=== PATIENT | female | born 1935 | race Caucasian/White ===

== ENCOUNTER 2019-03-05 17:10 | Observation (INO) ==
--- NOTE | 2019-03-05 17:45 | ERNOTE ---
Neuro HPI ER Record Date of Service: 03/05/19 Presenting Symptoms: weakness, difficulty walking Time Seen by Provider: 03/05/19 17:31 Source: family, RN notes reviewed, past records Exam Limitations: dementia, other - expressive aphasia Immunizations: IMMUNIZATION HX Immunizations Up to Date Yes History of Influenza Vaccine Yes Hx Pneumococcal Vaccination Yes Allergies/Adverse Reactions: Allergies Allergy/AdvReac Type Severity Reaction Status Date / Time codeine AdvReac Mild Nausea Verified 03/05/19 17:19 silicone AdvReac Mild SURGICAL Verified 03/05/19 17:19 TAPE CAUSES RASH Home Medications: HOME MEDICATIONS Docusate Sodium [Colace] 100 mg PO DAILY PRN 09/22/15 [Last Taken Unknown] diphenhydrAMINE HCL [Benadryl] 25 mg PO Q6H PRN 09/22/15 [Last Taken Unknown] Aspirin [Aspirin Enteric Coated] 81 mg PO DAILY 09/26/15 [Last Taken Unknown] omeprazole 20 mg tablet,delayed release 20 mg PO DAILY #90 tab 02/09/18 [Last Taken Unknown] memantine 10 mg tablet 10 mg PO BID 12/30/18 [Last Taken Unknown] acetaminophen 500 mg tablet 500 mg PO Q6H PRN #120 tab 01/06/19 [Last Taken Unknown] levothyroxine 112 mcg tablet 112 mcg PO DAILY #90 tab 02/09/19 [Last Taken Unknown] losartan 100 mg-hydrochlorothiazide 12.5 mg tablet 1 tab PO DAILY #90 tab 02/09/19 [Last Taken Unknown] acetaminophen 325 mg capsule 325 mg PO Q6H PRN #30 cap 02/10/19 [Last Taken Unknown] ciprofloxacin 500 mg tablet 500 mg PO BID #10 tab 02/11/19 [Last Taken Unknown] sertraline 25 mg tablet 25 mg PO DAILY #90 tab 02/25/19 [Last Taken Unknown] - History of Present Illness Narrative: Elizabeth is a 84 year old female brought to the ED by her . She resides in the dementia unit at the [facility] and has expressive aphasia. She has had a general decline in overall functioning in the past couple of weeks and has been noted to be leaning to the right. She saw her neurologist today. A stat head CT was ordered. This was not able to be done without prior authorization so she was brought to the ER from scheduling. She was recently treated for a UTI with Cipro. - Character of Deficits Additional Deficits: Present: decrease ability to stand, decrease ability to walk Prior Treament: Reports: recently seen Review of Systems - Narrative Narrative: Unable to complete d/t patient condition Medical History (Updated 01/26/18 @ 16:[address] [facility]) Anxiety Onset Date: ~12/29/12 Aphasia Dementia Diagnosed by Dr. Mejia Fibromyalgia Onset Date: ~07/22/11 GERD (gastroesophageal reflux disease) Onset Date: ~07/22/11 Hyperlipidemia Onset Date: ~07/22/11 Hypertension Onset Date: ~07/22/11 Hypothyroidism Onset Date: ~07/22/11 IBS (irritable bowel syndrome) Osteoarthritis Onset Date: ~07/22/11 Osteoporosis Sciatica Scoliosis Onset Date: ~1949 back brace Allergic rhinitis Onset Date: ~07/22/11 Humerus fracture Onset Date: ~09/22/15 closed, left distal Joint pain Onset Date: ~07/22/11 Low back pain Plantar fasciitis Surgical History: Surgical History (Updated 01/26/18 @ 16:[address] [facility]) Cataract Onset Date: ~09/2009 bilateral H/O breast biopsy Onset Date: ~1994 right breast,negative. H/O removal of cyst Onset Date: ~1958 bartholin cyst. H/O tubal ligation Onset Date: ~1974 H/O: hysterectomy Onset Date: ~1985 History of kyphoplasty L2 spine History of open reduction and internal fixation (ORIF) procedure Onset Date: ~09/27/15 left distal humerus History of rectal surgery Onset Date: ~2001 anterior/posterior rectal field lift by Dr. Melody burnett. H/O colonoscopy Onset Date: ~09/2009 Family History: Family History (Updated 01/26/18 @ 16:[address] [facility]) Daughter Alive and well Mother , age 89 Cancer rectal CVA (cerebral vascular accident) CHF (congestive heart failure) Heart disease Hypertension Osteoporosis Father , age 82 Diabetes CVA (cerebral vascular accident) Son Alive and well Social History: (Last Reviewed 03/05/19 @ 19:14 by Alcira Sena NP) Social History: mcc: No Marital status: lives independently: No current occupational status: retired Highest education level completed: Master's degree Service: No Tobacco: Smoking Status: Never smoker Alcohol: alcohol intake: current alcohol intake frequency: a few times a month Substance Use: substance use type: does not use Dietary Habits: caffeine: Yes caffeine comment: current every day Type: coffee Physical Exam - Physical Exam General Appearance: Present: wd/wn, alert, no apparent distress Head Exam: Present: normal inspection, no evidence of injury Eye Exam: Normal inspection: bilateral, PERRL: bilateral Ears, Nose, Throat: Present: normal ENT inspection, normal pharynx Neck: Present: normal inspection, supple Respiratory: Present: no respiratory distress, normal breath sounds, no accessory muscle use, lungs clear Cardiovascular/Chest: Present: regular rate, rhythm, no murmur Gastrointestinal/Abdominal: Present: normal bowel sounds, nondistended, soft Extremity Exam: Present: normal inspection, normal range of motion Neurological Exam: Present: alert, other - Smiles when spoken to, sometimes answers a question with a one word answer, obeys some commands. Absent: oriented, normal mood/affect, no motor/sensory deficits Skin Exam: Present: normal color, warm/dry Progress - Results and Orders Patient's Lab Results:: I have reviewed the patient's lab results. - Vital Signs Patient's Vital Signs:: I have reviewed the patient's vital signs. Vital Signs: Vital Signs 03/05/19 17:11 Temperature 36.6 C Pulse Rate 76 Respiratory Rate 16 Blood Pressure 143/75 O2 Sat by Pulse Oximetry 97 - EKG EKG #1 EKG: NSR, other - prolonged QT interval EKG read: Reviewed by me - CT/Ultrasound CT/Ultrasound Narrative: Head CT shows no acute intracranial process - Progress/Reassessment Chief Complaint: Altered Mental Status Progress:: Unchanged Plan - Plan Plan: Head CT is without acute findings, K+ is 2.1 - a K-rider is currently infusing. UA shows that the patient has a UTI. She just had a UTI that was treated with Cipro (culture was sensitive) approx 3 weeks ago. Will start Bactrim. Dr. Shaw was contacted. The patient will be admitted to observation for further potassium replacement and monitoring. Departure Clinical Impression: Hypokalemia Altered mental status Qualifiers: Altered mental status type: unspecified Qualified Code(s): R41.82 - Altered mental status, unspecified UTI (urinary tract infection) Qualifiers: Urinary tract infection type: acute cystitis Hematuria presence: without hematuria Qualified Code(s): N30.00 - Acute cystitis without hematuria - Departure Disposition: Still a patient Condition: Stable Referrals: Heladio Pena DO [Primary Care Provider] -
[2019-03-05 17:59] LABS: Hematocrit 37.2 % (37.0-47.0); Hemoglobin 12.1 gm/dL (12.5-16.0); Mean Cell Volume 96.9 fl (78-100); Mean Corpuscular Hemoglobin 31.5 pg (27-31); Mean Corpuscular Hgb Conc 32.5 g/dl (32-36); Mean Platelet Volume 9.1 fl (8-12.5); Neutrophil # 4.8 K/mm3 (1.3-6.0); Neutrophil % 66.3 % (42-75.0); Platelet Count 255 K/mm3 (150-450); Red Blood Count 3.84 M/mm3 (4.2-5.4); Red Cell Distribution Width 12.5 % (11.5-14.0); White Blood Count 7.3 K/mm3 (4.0-10.5)
[2019-03-05 18:05] LABS: Urine Bilirubin Negative (NEGATIVE); Urine Blood Negative /ul (NEGATIVE); Urine Ketone 5 mg/dL (NEGATIVE); Urine Nitrite Negative (NEGATIVE); Urine Protein 15 mg/dL (NEGATIVE); Urine Urobilinogen Normal (NORMAL); Urine pH 7.5 pH (5.0-7.0)
[2019-03-05 18:12] LABS: Anion Gap 10.9 mmol/L (6.8-13.8); BUN/Creatinine Ratio 12.2 (9.0-21.6); Bilirubin, Total 0.6 mg/dL (0.0-1.1); Ca. Corrected For Albumin 9.2 mg/dL (8.4-10.2); Calcium * 8.7 mg/dL (7.9-10.9); Carbon Dioxide 33.2 mmol/L (24-32.6); Total Protein 6.5 gm/dL (6.2-8.2)
[2019-03-05 18:15] LABS: Potassium 2.1 mmol/L (3.4-4.6)
[2019-03-05 18:19] LABS: Urine Appearance Slightly Cloudy (CLEAR); Urine Color Yellow
[2019-03-05 18:20] LABS: Urine Amorphous Sediment Few - 1+ (NONE-FEW); Urine Bacteria 4+; Urine Mucus Moderate - 2+; Urine RBC None Seen /hpf (0-5); Urine WBC 0-5 /hpf (0-5)
[2019-03-05] MEDS ORDERED: POTASSIUM CHLORIDE IN WATER 100 ML IV ONE (18:25)
[2019-03-05] MEDS: NORMAL SALINE 1,000 ML IV PRN ×2 (19:09→20:36)
--- NOTE | 2019-03-05 21:01 | HP ---
Chief Complaint - Chief Complaint Date of Service: 03/05/19 Time of Service: 21:00 Chief Complaint: Encephalopathy and Hypokalemia History of Present Illness: 84-year-old female with multiple comorbidities including history of stroke with residual deficits, dementia and expressive aphasia brought into the ER for concerns of weakness, altered mental status progressively getting worse over the last 2 weeks. Patient is a resident of [facility]. Initially seen by Dr. Pena in clinic 2 weeks ago patient was evaluated and discharged back to snf in [place]. Patient returned was evaluated by Dr. August and stat CT was ordered and concern for a possible stroke. Symptoms observed upon arrival were expressive aphasia and leaning of the body towards the right side passively getting worse. at the bedside states that his symptoms progressively began to decline shortly after her birthday towards the end of January. Evaluation completed upon arrival in the ER with CT of the head ruled out an acute bleed. Labs were significant for hypokalemia of 2.1, and UA obtained consistent with an infection. Her symptoms of altered mental status are consistent with an infection and low potassium. Patient was admitted to [facility] for repletion of potassium and treatment of a urinary tract infection. Medical History (Updated 03/05/19 @ 21:01 by Daksha Shaw MD) Anxiety Onset Date: ~12/29/12 Aphasia Dementia Diagnosed by Dr. Mejia Fibromyalgia Onset Date: ~07/22/11 GERD (gastroesophageal reflux disease) Onset Date: ~07/22/11 Hyperlipidemia Onset Date: ~07/22/11 Hypertension Onset Date: ~07/22/11 Hypothyroidism Onset Date: ~07/22/11 IBS (irritable bowel syndrome) Osteoarthritis Onset Date: ~07/22/11 Osteoporosis Sciatica Scoliosis Onset Date: ~1949 back brace Allergic rhinitis Onset Date: ~07/22/11 Humerus fracture Onset Date: ~09/22/15 closed, left distal Joint pain Onset Date: ~07/22/11 Low back pain Plantar fasciitis Surgical History: Surgical History (Updated 03/05/19 @ 21:01 by Daksha Shaw MD) Cataract Onset Date: ~09/2009 bilateral H/O breast biopsy Onset Date: ~1994 right breast,negative. H/O removal of cyst Onset Date: ~1958 bartholin cyst. H/O tubal ligation Onset Date: ~1974 H/O: hysterectomy Onset Date: ~1985 History of kyphoplasty L2 spine History of open reduction and internal fixation (ORIF) procedure Onset Date: ~09/27/15 left distal humerus History of rectal surgery Onset Date: ~2001 anterior/posterior rectal field lift by Dr. Melody burnett. H/O colonoscopy Onset Date: ~09/2009 Family History: Family History (Updated 01/26/18 @ 16:28 by Bacilio Rojo CMA) Daughter Alive and well Mother , age 89 Cancer rectal CVA (cerebral vascular accident) CHF (congestive heart failure) Heart disease Hypertension Osteoporosis Father , age 82 Diabetes CVA (cerebral vascular accident) Son Alive and well Social History: (Last Reviewed 03/05/19 @ 21:38 by Ofelia Paiz RN) Social History: snf: No Marital status: lives independently: No current occupational status: retired Highest education level completed: Master's degree Service: No Tobacco: Smoking Status: Never smoker Alcohol: alcohol intake: current alcohol intake frequency: a few times a month Substance Use: substance use type: does not use Dietary Habits: caffeine: Yes caffeine comment: current every day Type: coffee Review Of Systems (GEN) - Review of Systems Generalized/Overall Review: Present: Weakness, Malaise, Fatigue Respiratory: Absent: Shortness of Breath Cardiac: Absent: Chest Pain Abdominal: Absent: Nausea, Vomiting Musculoskeletal: Absent: No Symptoms Reported Neurological: Present: Weakness, Pre-existing Deficit Skin: Present: Dryness Immunizations: IMMUNIZATION HX Immunizations Up to Date Yes History of Influenza Vaccine Yes Hx Pneumococcal Vaccination Yes Allergies/Adverse Reactions: Allergies Allergy/AdvReac Type Severity Reaction Status Date / Time codeine AdvReac Mild Nausea Verified 03/05/19 17:19 silicone AdvReac Mild SURGICAL Verified 03/05/19 17:19 TAPE CAUSES RASH Home Medications: HOME MEDICATIONS Aspirin [Aspirin Enteric Coated] 81 mg PO DAILY 09/26/15 [Last Taken Unknown] memantine 10 mg tablet 10 mg PO BID 12/30/18 [Last Taken Unknown] levothyroxine 112 mcg tablet 112 mcg PO DAILY #90 tab 02/09/19 [Last Taken Unknown] losartan 100 mg-hydrochlorothiazide 12.5 mg tablet 1 tab PO DAILY #90 tab 02/09/19 [Last Taken Unknown] sertraline 25 mg tablet 25 mg PO DAILY #90 tab 02/25/19 [Last Taken Unknown] Exam - Exam Vital Signs: Vital Signs - Last Taken Temp 36.6 C 03/05/19 17:11 Pulse 80 03/05/19 20:15 Resp 20 03/05/19 20:15 BP 146/66 03/05/19 20:15 Pulse Ox 99 03/05/19 20:15 Constitutional: Present: Alert, No distress, Elderly, Thin and frail. Absent: Oriented x3 Respiratory: Present: lungs clear, normal breath sounds, no respiratory distress Cardiovascular/Chest: Present: normal peripheral pulses, regular rate, rhythm, no edema Abdomen: Present: Normal bowel sounds, soft, nontender Extremity: Absent: normal range of motion Skin Exam: Present: normal color, warm/dry Neurologic: Present: motor weakness, sensory deficit, disoriented x 3 Appearance: Present: impaired recent memory, impaired remote memory Eye contact: Present: decreased rate of speech, other - communicates minimally Diagnostic Studies: Abnormal Lab Results 03/05/19 03/05/19 03/05/19 Range/Units 17:55 17:55 18:00 RBC 3.84 L (4.2-5.4) M/mm3 Hgb 12.1 L (12.5-16.0) gm/dL MCH 31.5 H (27-31) pg Sodium 145 H (132-142) mmol/L Plasma Sodium 145 H (130-142) mmol/L Potassium 2.1 L* D (3.4-4.6) mmol/L Carbon Dioxide 33.2 H (24-32.6) mmol/L Est GFR (Non-Af Amer) 58 L (60-130) mL/min Random Glucose 112 H (70-110) mg/dL Albumin 3.0 L (3.4-5.0) gm/dl Urine Protein 15 H (NEGATIVE) mg/dL Ur Leukocyte Esterase 25 H (NEGATIVE) /ul Urine Bacteria 4+ H (NONE) Urine Mucus Moderate - 2+ H (NONE) Laboratory Results WBC 7.3 K/mm3 (4.0-10.5) 03/05/19 17:55 RBC 3.84 M/mm3 (4.2-5.4) L 03/05/19 17:55 Hgb 12.1 gm/dL (12.5-16.0) L 03/05/19 17:55 Hct 37.2 % (37.0-47.0) 03/05/19 17:55 MCV 96.9 fl (78-100) 03/05/19 17:55 MCH 31.5 pg (27-31) H 03/05/19 17:55 MCHC 32.5 g/dl (32-36) 03/05/19 17:55 RDW 12.5 % (11.5-14.0) 03/05/19 17:55 Plt Count 255 K/mm3 (150-450) 03/05/19 17:55 MPV 9.1 fl (8-12.5) 03/05/19 17:55 Immature Gran % (Auto) 0.30 % (0.001-0.429) 03/05/19 17:55 Immature Gran # (Auto) 0.02 K/mm3 (0.000-0.0310) 03/05/19 17:55 66.3 % (42-75.0) 03/05/19 17:55 23.6 % (20-51) 03/05/19 17:55 8.7 % (0.0-9) 03/05/19 17:55 0.7 % (0.0-3.0) 03/05/19 17:55 0.4 % (0.0-1.0) 03/05/19 17:55 Nucleated RBC % 0.0 k/mm3 (0-1) 03/05/19 17:55 4.8 K/mm3 (1.3-6.0) 03/05/19 17:55 1.71 k/mm3 (1.5-3.5) 03/05/19 17:55 0.6 k/mm3 (0.0-1.0) 03/05/19 17:55 0.1 k/mm3 (0.0-0.7) 03/05/19 17:55 Absolute Basophils 0.0 k/mm3 (0.0-0.1) 03/05/19 17:55 Sodium 145 mmol/L (132-142) H 03/05/19 17:55 145 mmol/L (130-142) H 03/05/19 17:55 Potassium 2.1 mmol/L (3.4-4.6) L* D 09/06/19 17:55 Chloride 103 mmol/L (97-106) 03/05/19 17:55 Carbon Dioxide 33.2 mmol/L (24-32.6) H 03/05/19 17:55 10.9 mmol/L (6.8-13.8) 03/05/19 17:55 BUN 12 mg/dL (3-23) 03/05/19 17:55 0.98 mg/dL (0.4-1.4) 03/05/19 17:55 Est GFR (Non-Af Amer) 58 mL/min (60-130) L 03/05/19 17:55 12.2 (9.0-21.6) 03/05/19 17:55 112 mg/dL (70-110) H 03/05/19 17:55 Calcium 8.7 mg/dL (7.9-10.9) 03/05/19 17:55 Calcium Adj for Albumin 9.2 mg/dL (8.4-10.2) 03/05/19 17:55 0.6 mg/dL (0.0-1.1) 03/05/19 17:55 AST 24 U/L (0-48) 03/05/19 17:55 ALT 23 U/L (19-67) 03/05/19 17:55 100 U/L (50-170) 03/05/19 17:55 6.5 gm/dL (6.2-8.2) 03/05/19 17:55 3.0 gm/dl (3.4-5.0) L 03/05/19 17:55 Yellow 03/05/19 18:00 Slightly cloudy (CLEAR) 03/05/19 18:00 7.5 pH (5.0-7.0) 03/05/19 18:00 Ur Specific T[place]ill 1.010 SP.GR. (1.005-1.010) 03/05/19 18:00 15 mg/dL (NEGATIVE) H 03/05/19 18:00 Negative mg/dL (NEGATIVE) 03/05/19 18:00 5 mg/dL (NEGATIVE) 03/05/19 18:00 Negative /ul (NEGATIVE) 03/05/19 18:00 Negative (NEGATIVE) 03/05/19 18:00 Negative mg/dl (NEGATIVE) 03/05/19 18:00 Prot Sulfosalicylic Acd 1+ mg/dL (0) 03/05/19 18:00 Normal EU/dl (NORMAL) 03/05/19 18:00 Ur Leukocyte Esterase 25 /ul (NEGATIVE) H 03/05/19 18:00 None seen /hpf (0-5) 03/05/19 18:00 0-5 /hpf (0-5) 03/05/19 18:00 Ur Epithelial Cells 0-5 /hpf (0-5) 03/05/19 18:00 Amorphous Sediment Few - 1+ (NONE-FEW) 03/05/19 18:00 4+ (NONE) H 03/05/19 18:00 Moderate - 2+ (NONE) H 03/05/19 18:00 Culture to follow 03/05/19 18:00 Assessment/Plan - Narrative Narrative: 1. Encephalopathy associated with weakness most likely secondary to electrolyte imbalance and infection -Continue neurochecks every 4 hours - Replace electrolyte -Start antibiotic 2. Hypokalemia -2.1 on admission, EKG consistent with prolonged QT interval -Has received 40 mEq overnight, potassium is currently 2.6 -Morning EKG pending -We will continue to replete till potassium is greater than 3.5 -Discontinued diuretics though most likely increased the chance of loss of potassium -We will continue daily CMP 3. Acute cystitis -Urine culture pending -Started on Rocephin 1 g IV every 24 hour -We will continue daily CBC 4. Dementia associated with expressive aphasia syndrome -Continue home meds Diet: Soft diet DVT propyhlaxis: Lovenox 40mg SC CODE STATUS: Full Code with restrictions Disposition: Anticipate discharge withing 24 hours. - Assessment/Plan (1) Encephalopathy acute Problem: Acute (2) Hypokalemia Problem: Acute (3) UTI (urinary tract infection) Problem: Acute Qualifiers: Urinary tract infection type: acute cystitis Hematuria presence: without hematuria Qualified Code(s): N30.00 - Acute cystitis without hematuria (4) Dementia Problem: Chronic Qualifiers: Dementia type: vascular dementia Dementia behavioral disturbance: without behavioral disturbance Qualified Code(s): F01.50 - Vascular dementia without behavioral disturbance (5) Expressive aphasia syndrome Problem: Chronic
[2019-03-05] MEDS: POTASSIUM CHLORIDE IN WATER 100 ML IV SCH (23:51)
[2019-03-06] MEDS: POTASSIUM CHLORIDE IN WATER 100 ML IV SCH ×11 (00:57→17:50)
[2019-03-06 05:41] LABS: Hematocrit 32.9 % (37.0-47.0); Hemoglobin 10.7 gm/dL (12.5-16.0); Mean Cell Volume 95.9 fl (78-100); Mean Corpuscular Hemoglobin 31.2 pg (27-31); Mean Corpuscular Hgb Conc 32.5 g/dl (32-36); Neutrophil # 3.4 K/mm3 (1.3-6.0); Neutrophil % 55.7 % (42-75.0); Platelet Count 222 K/mm3 (150-450); Red Blood Count 3.43 M/mm3 (4.2-5.4); Red Cell Distribution Width 12.4 % (11.5-14.0); White Blood Count 6.1 K/mm3 (4.0-10.5)
[2019-03-06 05:51] LABS: Albumin * 2.4 gm/dl (3.4-5.0); Anion Gap 11.8 mmol/L (6.8-13.8); BUN/Creatinine Ratio 12.5 (9.0-21.6); Bilirubin, Total 0.5 mg/dL (0.0-1.1); Ca. Corrected For Albumin 8.8 mg/dL (8.4-10.2); Calcium * 7.8 mg/dL (7.9-10.9); Carbon Dioxide 29.8 mmol/L (24-32.6); Potassium 2.6 mmol/L (3.4-4.6); Total Protein 5.4 gm/dL (6.2-8.2)
[2019-03-06] MEDS ORDERED: diphenhydrAMINE HCL 25 MG CAPSULE PO PRN (06:51)
[2019-03-06] MEDS ORDERED: DOCUSATE SODIUM 100 MG CAPSULE PO PRN (06:51)
[2019-03-06] MEDS ORDERED: ACETAMINOPHEN 325 MG TABLET PO PRN (06:51)
[2019-03-06] MEDS ORDERED: ACETAMINOPHEN 500 MG TABLET PO PRN (06:51)
--- NOTE | 2019-03-06 08:33 | PN ---
Subjective - Date and Time Seen Date: 03/06/19 Time: 07:35 Subjective Narrative: No acute events overnight. not at bedside. Patient cannot communicate as well. Will await for to discuss management Objective - Review of Systems Generalized/Overall Review: Reports: Weakness Respiratory: Denies: Shortness of Breath Cardiac: Denies: Chest Pain Abdominal: Denies: Nausea, Vomiting - Vitals Vitals: Last Vital Signs Temp 36.7 C 03/06/19 06:49 Pulse 79 03/06/19 06:49 Resp 16 03/06/19 06:49 BP 119/66 03/06/19 06:49 Pulse Ox 100 03/06/19 06:49 - Abnormal Lab Findings Abnormal Lab Findings: Abnormal Lab Results 03/05/19 03/05/19 03/05/19 Range/Units 17:55 17:55 18:00 RBC 3.84 L (4.2-5.4) M/mm3 Hgb 12.1 L (12.5-16.0) gm/dL Hct (37.0-47.0) % MCH 31.5 H (27-31) pg Monocytes % (0.0-9) % Sodium 145 H (132-142) mmol/L Plasma Sodium 145 H (130-142) mmol/L Potassium 2.1 L* D (3.4-4.6) mmol/L Carbon Dioxide 33.2 H (24-32.6) mmol/L Est GFR (Non-Af Amer) 58 L (60-130) mL/min Random Glucose 112 H (70-110) mg/dL Calcium (7.9-10.9) mg/dL Total Protein (6.2-8.2) gm/dL Albumin 3.0 L (3.4-5.0) gm/dl Urine Protein 15 H (NEGATIVE) mg/dL Ur Leukocyte Esterase 25 H (NEGATIVE) /ul Urine Bacteria 4+ H (NONE) Urine Mucus Moderate - 2+ H (NONE) 03/06/19 03/06/19 Range/Units 05:38 05:38 RBC 3.43 L (4.2-5.4) M/mm3 Hgb 10.7 L (12.5-16.0) gm/dL Hct 32.9 L (37.0-47.0) % MCH 31.2 H (27-31) pg Monocytes % 9.2 H (0.0-9) % Sodium 144 H (132-142) mmol/L Plasma Sodium 144 H (130-142) mmol/L Potassium 2.6 L D (3.4-4.6) mmol/L Carbon Dioxide (24-32.6) mmol/L Est GFR (Non-Af Amer) (60-130) mL/min Random Glucose (70-110) mg/dL Calcium 7.8 L (7.9-10.9) mg/dL Total Protein 5.4 L (6.2-8.2) gm/dL Albumin 2.4 L (3.4-5.0) gm/dl Urine Protein (NEGATIVE) mg/dL Ur Leukocyte Esterase (NEGATIVE) /ul Urine Bacteria (NONE) Urine Mucus (NONE) - Exam Constitutional: Present: Alert, Elderly, Thin and frail Respiratory: Present: lungs clear, normal breath sounds Cardiovascular/Chest: Present: normal peripheral pulses, regular rate, rhythm, no edema Abdomen: Present: Normal bowel sounds, soft Extremity: Present: normal inspection Skin Exam: Present: normal color, warm/dry Neurologic: Present: motor weakness, sensory deficit, disoriented x 3 Assessment/Plan Plan Narrative: Will continue to replete potassium and check CMP q12h- q24h. Continue Rocephin 1gm Q24H along with daily CBC Continue Neuro Checks EKG in AM Disposition: Anticipate discharge within 24 hours. - Problems/Diagnosis (1) Weakness Problem: Acute (2) Encephalopathy acute Problem: Acute (3) Hypokalemia Problem: Acute (4) UTI (urinary tract infection) Problem: Acute Qualifiers: Urinary tract infection type: acute cystitis Hematuria presence: without hematuria Qualified Code(s): N30.00 - Acute cystitis without hematuria (5) Dementia Problem: Chronic Qualifiers: Dementia type: vascular dementia Dementia behavioral disturbance: without behavioral disturbance Qualified Code(s): F01.50 - Vascular dementia without behavioral disturbance (6) Expressive aphasia syndrome Problem: Chronic
[2019-03-06] MEDS: MEMANTINE HCL 10 MG TABLET PO SCH ×2 (10:05→20:20)
[2019-03-06] MEDS: PANTOPRAZOLE SODIUM 20 MG TABLET.DR PO SCH (10:05)
[2019-03-06] MEDS: SERTRALINE HCL 50 MG TABLET PO SCH (10:06)
[2019-03-06] MEDS: LEVOTHYROXINE SODIUM 112 MCG TABLET PO SCH (10:06)
[2019-03-06] MEDS: ASPIRIN 81 MG TABLET.DR PO SCH (10:13)
[2019-03-06] MEDS ORDERED: ENOXAPARIN SODIUM 40 MG/0.4 ML SYRG SC SCH (12:00)
[2019-03-06 12:40] LABS: Albumin * 2.6 gm/dl (3.4-5.0); Anion Gap 9.6 mmol/L (6.8-13.8); BUN/Creatinine Ratio 8.6 (9.0-21.6); Bilirubin, Total 0.3 mg/dL (0.0-1.1); Ca. Corrected For Albumin 8.8 mg/dL (8.4-10.2); Carbon Dioxide 30.7 mmol/L (24-32.6); Potassium 3.3 mmol/L (3.4-4.6); Total Protein 5.4 gm/dL (6.2-8.2)
[2019-03-06] MEDS: NORMAL SALINE 1,000 ML IV PRN (14:09)
[2019-03-06 18:26] LABS: Albumin * 2.7 gm/dl (3.4-5.0); Anion Gap 10.8 mmol/L (6.8-13.8); BUN/Creatinine Ratio 9.5 (9.0-21.6); Bilirubin, Total 0.4 mg/dL (0.0-1.1); Ca. Corrected For Albumin 8.9 mg/dL (8.4-10.2); Calcium * 8.2 mg/dL (7.9-10.9); Carbon Dioxide 29.9 mmol/L (24-32.6); Potassium 3.7 mmol/L (3.4-4.6)
[2019-03-07] MEDS: NORMAL SALINE 1,000 ML IV PRN (07:07)
[2019-03-07] MEDS: LEVOTHYROXINE SODIUM 112 MCG TABLET PO SCH (08:46)
[2019-03-07] MEDS: PANTOPRAZOLE SODIUM 20 MG TABLET.DR PO SCH (08:46)
[2019-03-07] MEDS: SERTRALINE HCL 50 MG TABLET PO SCH (08:46)
[2019-03-07] MEDS: MEMANTINE HCL 10 MG TABLET PO SCH (08:46)
[2019-03-07] MEDS: ASPIRIN 81 MG TABLET.DR PO SCH (08:46)
[2019-03-07 08:47] LABS: Hematocrit 35.1 % (37.0-47.0); Hemoglobin 11.6 gm/dL (12.5-16.0); Mean Cell Volume 95.1 fl (78-100); Mean Corpuscular Hemoglobin 31.4 pg (27-31); Mean Platelet Volume 8.8 fl (8-12.5); Neutrophil % 55.3 % (42-75.0); Platelet Count 216 K/mm3 (150-450); Red Blood Count 3.69 M/mm3 (4.2-5.4); Red Cell Distribution Width 12.4 % (11.5-14.0); White Blood Count 5.5 K/mm3 (4.0-10.5)
--- NOTE | 2019-03-07 09:38 | PN ---
Subjective - Date and Time Seen Date: 03/07/19 Time: 08:15 Objective - Vitals Vitals: Last Vital Signs Temp 36.8 C 03/07/19 06:39 Pulse 104 H 03/07/19 06:39 Resp 18 03/07/19 06:39 BP 134/56 03/07/19 06:39 Pulse Ox 93 03/07/19 06:39 - Abnormal Lab Findings Abnormal Lab Findings: Abnormal Lab Results 03/06/19 03/06/19 03/07/19 Range/Units 12:07 18:05 08:29 RBC 3.69 L (4.2-5.4) M/mm3 Hgb 11.6 L (12.5-16.0) gm/dL Hct 35.1 L (37.0-47.0) % MCH 31.4 H (27-31) pg Eosinophils % 3.5 H (0.0-3.0) % Sodium 144 H 143 H (132-142) mmol/L Plasma Sodium 144 H 143 H (130-142) mmol/L Potassium 3.3 L D (3.4-4.6) mmol/L Chloride 107 H (97-106) mmol/L BUN/Creatinine Ratio 8.6 L (9.0-21.6) Random Glucose 114 H D (70-110) mg/dL Total Protein 5.4 L 6.0 L (6.2-8.2) gm/dL Albumin 2.6 L 2.7 L (3.4-5.0) gm/dl Assessment/Plan - Problems/Diagnosis (1) Weakness Problem: Acute (2) Encephalopathy acute Problem: Acute (3) Hypokalemia Problem: Acute (4) UTI (urinary tract infection) Problem: Acute Qualifiers: Urinary tract infection type: acute cystitis Hematuria presence: without hematuria Qualified Code(s): N30.00 - Acute cystitis without hematuria (5) Dementia Problem: Chronic Qualifiers: Dementia type: vascular dementia Dementia behavioral disturbance: without behavioral disturbance Qualified Code(s): F01.50 - Vascular dementia without behavioral disturbance (6) Expressive aphasia syndrome Problem: Chronic
--- NOTE | 2019-03-07 09:53 | DS ---
(1) Weakness Problem: Resolved (2) Encephalopathy acute Problem: Resolved (3) Hypokalemia Problem: Resolved (4) UTI (urinary tract infection) Problem: Resolved Qualifiers: Urinary tract infection type: acute cystitis Hematuria presence: without hematuria Qualified Code(s): N30.00 - Acute cystitis without hematuria (5) Dementia Problem: Chronic Qualifiers: Dementia type: vascular dementia Dementia behavioral disturbance: without behavioral disturbance Qualified Code(s): F01.50 - Vascular dementia without behavioral disturbance (6) Expressive aphasia syndrome Problem: Chronic Date of Discharge:: 03/07/19 Description of Stay: 84-year-old female with multiple comorbidities including Dememntia, history of CVA's with residual deficits, Expressive Aphasia presents from Assisted Living with Concerns of Acute Encephalopathy. Patient Evaluated and Determined Acute Encephalopathy Most Likely Secondary to Hypokalemia Versus Urinary Tract Infection. Treatment for urinary tract infection with Rocephin IV started until cultures were available, cultures were negative, Rocephin discontinued, no need for further antibiotics,. Potassium on admission was 2.1. Patient required to be repeated with 12 bags of potassium. Symptoms are significantly improved patient is seated upright no longer slouching towards the left, patient is able to communicate which previously was not able to do so. Weakness is significantly improved. Patient has been in the wheelchair for the past 2 to 4 weeks at the intermediate. Will encourage upon discharge for PT evaluation and treatment at [facility]. Patient follow-up appointment will be with Dr. Heladio Pena. Appointment to be scheduled. 1. Encephalopathy, acute most likely secondary to hypokalemia - Resolved 2. Hypokalemia - Resolved 3. Weakness - Improved significantly - Currently using wheelchair at [facility] - Will encourage PT eval and Treat outpatient. 4. UTI (urinary tract infection) - Urine culture negative - Weakness most likely secondary to hypokalemia - D/C IV rocephin. No need to continue oral antibiotics outpatient 5. Dementia - Chronic 6. Expressive aphasia syndrome - Chronic Disposition: Stable. Discharge to [facility] Follow up appointment: Dr Pena. To be scheduled. Procedures Performed: none Results and Findings: Lab Pending Results 03/05/19 17:55: WBC 7.3, RBC 3.84 L, Hgb 12.1 L, Hct 37.2, MCV 96.9, MCH 31.5 H, MCHC 32.5, RDW 12.5, Plt Count 255, MPV 9.1, Immature Gran % (Auto) 0.30, Immature Gran # (Auto) 0.02, Neutrophils % 66.3, Lymphocytes % 23.6, Monocytes % 8.7, Eosinophils % 0.7, Basophils % 0.4, Nucleated RBC % 0.0, Neutrophils # 4.8, Lymphocytes # 1.71, Monocytes # 0.6, Eosinophils # 0.1, Absolute Basophils 0.0 03/05/19 17:55: Sodium 145 H, Plasma Sodium 145 H, Potassium 2.1 L* D, Chloride 103, Carbon Dioxide 33.2 H, Anion Gap 10.9, BUN 12, Creatinine 0.98, Est GFR (Non-Af Amer) 58 L, BUN/Creatinine Ratio 12.2, Random Glucose 112 H, Calcium 8.7, Calcium Adj for Albumin 9.2, Total Bilirubin 0.6, AST 24, ALT 23, Alkaline Phosphatase 100, Total Protein 6.5, Albumin 3.0 L 03/05/19 18:00: Urine Color Yellow, Urine Appearance Slightly cloudy, Urine pH 7.5, Ur Specific [place] 1.010, Urine Protein 15 H, Urine Glucose (UA) Negative, Urine Ketones 5, Urine Blood Negative, Urine Nitrate Negative, Urine Bilirubin Negative, Prot Sulfosalicylic Acd 1+, Urine Urobilinogen Normal, Ur Leukocyte Esterase 25 H, Urine RBC None seen, Urine WBC 0-5, Ur Epithelial Cells 0-5, Amorphous Sediment Few - 1+, Urine Bacteria 4+ H, Urine Mucus Moderate - 2+ H, Urine Culture Comments Culture to follow 03/06/19 05:38: WBC 6.1, RBC 3.43 L, Hgb 10.7 L, Hct 32.9 L, MCV 95.9, MCH 31.2 H, MCHC 32.5, RDW 12.4, Plt Count 222, MPV 9.0, Immature Gran % (Auto) 0.30, Immature Gran # (Auto) 0.02, Neutrophils % 55.7, Lymphocytes % 32.7, Monocytes % 9.2 H, Eosinophils % 1.8, Basophils % 0.3, Nucleated RBC % 0.0, Neutrophils # 3.4, Lymphocytes # 2.00, Monocytes # 0.6, Eosinophils # 0.1, Absolute Basophils 0.0 03/06/19 05:38: Sodium 144 H, Plasma Sodium 144 H, Potassium 2.6 L D, Chloride 105, Carbon Dioxide 29.8, Anion Gap 11.8, BUN 9, Creatinine 0.72, Est GFR (Non- Af Amer) 82 D, BUN/Creatinine Ratio 12.5, Random Glucose 87, Calcium 7.8 L, Calcium Adj for Albumin 8.8, Total Bilirubin 0.5, AST 32, ALT 22, Alkaline Phosphatase 83, Total Protein 5.4 L, Albumin 2.4 L 03/06/19 12:07: Sodium 144 H, Plasma Sodium 144 H, Potassium 3.3 L D, Chloride 107 H, Carbon Dioxide 30.7, Anion Gap 9.6, BUN 7, Creatinine 0.81, Est GFR (Non- Af Amer) 72, BUN/Creatinine Ratio 8.6 L, Random Glucose 114 H D, Calcium 8.0, Ca lcium Adj for Albumin 8.8, Total Bilirubin 0.3, AST 31, ALT 29, Alkaline Phosphatase 89, Total Protein 5.4 L, Albumin 2.6 L 03/06/19 18:05: Sodium 143 H, Plasma Sodium 143 H, Potassium 3.7, Chloride 106, Carbon Dioxide 29.9, Anion Gap 10.8, BUN 7, Creatinine 0.74, Est GFR (Non-Af Amer) 80, BUN/Creatinine Ratio 9.5, Random Glucose 90, Calcium 8.2, Calcium Adj for Albumin 8.9, Total Bilirubin 0.4, AST 31, ALT 28, Alkaline Phosphatase 98, Total Protein 6.0 L, Albumin 2.7 L 03/07/19 08:29: WBC 5.5, RBC 3.69 L, Hgb 11.6 L, Hct 35.1 L, MCV 95.1, MCH 31.4 H, MCHC 33.0, RDW 12.4, Plt Count 216, MPV 8.8, Immature Gran % (Auto) 0.40, Immature Gran # (Auto) 0.02, Neutrophils % 55.3, Lymphocytes % 32.8, Monocytes % 7.3, Eosinophils % 3.5 H, Basophils % 0.7, Nucleated RBC % 0.0, Neutrophils # 3.0, Lymphocytes # 1.80, Monocytes # 0.4, Eosinophils # 0.2, Absolute Basophils 0.0 Discharge Location: [facility] Disposition: Nursing Facility, Not [facility] Home Health Agency: Other - [facility] Condition: Stable Discharge Activity: Other - ambulate with asssitance Discharge Diet: General/regular food [facility] Therapy: Physical Therapy, Occupation Therapy Referrals: Heladio Pena DO [Primary Care Provider] - Additional Patient Instructions (free text): Pt is from the [facility], please call and fax discharge information to them, fax # [phone]. Complete Home Medications List: Complete Home Medication List: Aspirin [Aspirin Enteric Coated] 81 mg PO DAILY 09/26/15 memantine 10 mg tablet 10 mg PO BID 12/30/18 levothyroxine 112 mcg tablet 112 mcg PO DAILY #90 tab 02/09/19 losartan 100 mg-hydrochlorothiazide 12.5 mg tablet 1 tab PO DAILY #90 tab 02/09/19 sertraline 25 mg tablet 25 mg PO DAILY #90 tab 02/25/19
[2019-03-07 10:03] LABS: Albumin * 2.6 gm/dl (3.4-5.0); Bilirubin, Total 0.3 mg/dL (0.0-1.1); Ca. Corrected For Albumin 9.1 mg/dL (8.4-10.2); Calcium * 8.3 mg/dL (7.9-10.9); Carbon Dioxide 29.3 mmol/L (24-32.6); Potassium 3.3 mmol/L (3.4-4.6); Total Protein 5.4 gm/dL (6.2-8.2)
[2019-03-07 14:07] VITALS: BP 141/73
[2019-03-08] MEDS ORDERED: POTASSIUM CHLORIDE 40 MEQ/15 ML LIQUID PO SCH (09:00)
== END 2019-03-07 14:40 | disposition home health service (06) ==
LOC: MS 17:10 → ER 17:10 → MS 20:15
PROVIDERS: ADMIT Family Medicine; ATTEND Family Medicine
DX: N30.00 Acute cystitis without hematuria; R47.01 Aphasia; E87.6 Hypokalemia; R53.1 Weakness; G93.40 Encephalopathy, unspecified; F01.50 Vascular dementia, unspecified severity, without behavioral disturbance, psychotic disturbance, mood disturbance, and anxiety
CPT/HCPCS: 36415; 70450; 80053; 81001; 85025; 87081; 87086; 93005; 96365; 96366; 96367; 96372; 99285; G0378